=== PATIENT | male | born 1945 | race Caucasian/White ===

== ENCOUNTER 2017-07-04 11:13 | Inpatient (IN) | payer MEDICARE, BC ==
[~2017-07-04] VITALS: Ht 162.6 cm; Wt 81.6 kg
[2017-07-04 13:23] VITALS: BP 135/86
[2017-07-04] MEDS ORDERED: acetaminophen 325mg tablet PO PRN ×2 (14:40)
[2017-07-04] MEDS ORDERED: mag hydrox/Alum hydrox/simeth 30ml oral suspension PO PRN (14:40)
[2017-07-04] MEDS ORDERED: magnesium hydroxide 30ml (MOM) UD suspension PO PRN (14:40)
[2017-07-04] MEDS ORDERED: RISP1TAB3 PO (15:11)
[2017-07-04] MEDS ORDERED: DIVA-81 PO (15:11)
[2017-07-04] MEDS ORDERED: DICL-194 PO (15:11)
[2017-07-04] MEDS ORDERED: LISI-600 PO (15:11)
[2017-07-04 19:00] VITALS: BP 131/83
[2017-07-04] MEDS: divalproex sod 250mg ER (24-hour) tablet PO SCH (20:28)
[2017-07-04] MEDS: risperiDONE 0.5mg tablet PO SCH (20:28)
[2017-07-05 07:29] VITALS: BP 128/79
[2017-07-05 07:33] LABS: BASOPHILS % (AUTO) 0.6 % (0-1); EOSINOPHILS # (AUTO) 0.1 X10'3 (0-0.9); EOSINOPHILS % (AUTO) 1.7 % (0-6); HEMATOCRIT 44.3 % (42.0-52.0); LYMPHOCYTES # (AUTO) 1.5 X10'3 (1.1-4.8); MEAN CORPUSCULAR HEMOGLOBIN 31.6 PG (27.0-31.0); MEAN CORPUSCULAR HGB CONC 33.9 % (33.0-36.5); MEAN CORPUSCULAR VOLUME 93.3 FL (78-98); MEAN PLATELET VOLUME 8.1 FL (7.4-10.4); MONOCYTES # (AUTO) 0.5 X10'3 (0-0.9); MONOCYTES % (AUTO) 10.2 % (2-12); NEUTROPHILS # (AUTO) 3.2 X10'3 (1.8-7.7); NEUTROPHILS % (AUTO) 59.5 % (42-75); PLATELET COUNT 186 X10'3 (140-440); RED BLOOD COUNT 4.75 X10'6 (4.70-6.10); RED CELL DISTRIBUTION WIDTH 12.8 % (11.5-14.5); WHITE BLOOD COUNT 5.4 X10'3 (4.5-11.0)
[2017-07-05 07:48] LABS: ALANINE AMINOTRANSFERASE 25 U/L (12-78); ALBUMIN 3.6 G/DL (3.4-5.0); ALBUMIN/GLOBULIN RATIO 1.1 (1.1-1.5); ALKALINE PHOSPHATASE 62 IU/L (46-116); ANION GAP 7 (8-16); ASPARTATE AMINO TRANSFERASE 10 U/L (10-37); BILIRUBIN,TOTAL 0.8 MG/DL (0.1-1.0); BLOOD UREA NITROGEN 20 MG/DL (7-18); BUN/CREATININE RATIO 18.3 (5.4-32.0); CALCIUM 8.9 MG/DL (8.5-10.1); CHLORIDE 104 MMOL/L (99-107); CREATININE 1.09 MG/DL (0.60-1.10); GLUCOSE 96 MG/DL (70-104); POTASSIUM 4.3 MMOL/L (3.5-5.1); SODIUM 141 MMOL/L (135-145); TOTAL CARBON DIOXIDE 30.4 MMOL/L (24-32); TOTAL PROTEIN 6.8 G/DL (6.4-8.2); eGFR 67 ML/MIN
[2017-07-05] MEDS: risperiDONE 0.5mg tablet PO SCH ×2 (08:12→20:54)
[2017-07-05] MEDS: divalproex sod 250mg ER (24-hour) tablet PO SCH ×2 (08:12→20:54)
[2017-07-05] MEDS: lisinopril 20mg tablet PO SCH (08:12)
[2017-07-05 19:00] VITALS: BP 136/79
[2017-07-06 08:00] VITALS: BP 120/80
[2017-07-06] MEDS: risperiDONE 0.5mg tablet PO SCH ×2 (08:50→20:13)
[2017-07-06] MEDS: lisinopril 20mg tablet PO SCH (08:50)
[2017-07-06] MEDS: divalproex sod 250mg ER (24-hour) tablet PO SCH ×2 (08:50→20:13)
[2017-07-06 19:58] VITALS: BP 125/54
[2017-07-07 08:00] VITALS: BP 116/75
[2017-07-07] MEDS: lisinopril 20mg tablet PO SCH (08:18)
[2017-07-07] MEDS: divalproex sod 250mg ER (24-hour) tablet PO SCH ×2 (08:18→21:03)
[2017-07-07 19:12] VITALS: BP 133/74
[2017-07-07] MEDS: risperiDONE 0.5mg tablet PO SCH (21:03)
[2017-07-08 07:28] VITALS: BP 142/94
[2017-07-08] MEDS: divalproex sod 250mg ER (24-hour) tablet PO SCH ×2 (07:51→20:19)
[2017-07-08] MEDS: risperiDONE 0.5mg tablet PO SCH ×2 (07:51→20:20)
[2017-07-08] MEDS: lisinopril 20mg tablet PO SCH (07:51)
[2017-07-08 08:46] LABS: HEMOGLOBIN A1C 5.6 % (4.5-6.2)
[2017-07-08 08:50] LABS: CHOL/HDL RATIO 2.8 (0.00-4.99); CHOLESTEROL 135 MG/DL (0-200); HDL CHOLESTEROL 48 MG/DL (35-60); LDL CHOLESTEROL 85 MG/DL (50-100); TRIGLYCERIDES 60 MG/DL (20-135)
[2017-07-08 19:29] VITALS: BP 129/80
[2017-07-09] MEDS ORDERED: pantoprazole 40 MG vial IV ONE (00:30)
[2017-07-09] MEDS ORDERED: pantoprazole 40mg Tablet.DR PO ONE (00:45)
[2017-07-09 07:26] VITALS: BP 126/77
[2017-07-09] MEDS: lisinopril 20mg tablet PO SCH (07:47)
[2017-07-09] MEDS: divalproex sod 250mg ER (24-hour) tablet PO SCH (07:47)
[2017-07-09] MEDS: risperiDONE 0.5mg tablet PO SCH (07:47)
[2017-07-09] MEDS ORDERED: RISP0.5T3 PO ×2 (14:45)
[2017-07-09] MEDS ORDERED: DIVA250T8 PO ×2 (14:45)
== END 2017-07-09 16:20 | disposition home or self-care (01) | DRG 885 ==
LOC: ADULT MH 12:37 → UNDOADMIN 12:37
PROVIDERS: ADMIT Psychiatry & Neurology Psychiatry; ATTEND Psychiatry & Neurology Psychiatry
DX: F31.64 Bipolar disorder, current episode mixed, severe, with psychotic features (principal); F10.11 Alcohol abuse, in remission; F41.9 Anxiety disorder, unspecified; I10 Essential (primary) hypertension; K21.9 Gastro-esophageal reflux disease without esophagitis; Z79.899 Other long term (current) drug therapy
CPT/HCPCS: 36415; 80053; 80061; 80164; 83036; 85025; 87070; C9113

== ENCOUNTER 2022-04-09 14:47 | Emergency (ER) | payer BC, MEDICARE ==
[~2022-04-09] VITALS: Ht 167.6 cm; Wt 84.5 kg
[~2022-04-09 14:47] MED LIST: DICL-194 PO; DIVA250T8 PO; LISI20TA28 PO; RISP0.5T65 PO
[2022-04-09] MEDS ORDERED: metoprolol tartrate 50mg tablet PO ONE (20:10)
[2022-04-09 20:19] LABS: BASOPHILS # (AUTO) 0.1 X10'3 (0-0.2); BASOPHILS % (AUTO) 0.8 % (0-1); EOSINOPHILS % (AUTO) 0.7 % (0-6); HEMATOCRIT 42.2 % (42.0-52.0); HEMOGLOBIN 14.7 g/dl (14.0-17.9); LYMPHOCYTES # (AUTO) 1.8 X10'3 (1.1-4.8); LYMPHOCYTES % (AUTO) 26.9 % (21-51); MEAN CORPUSCULAR HEMOGLOBIN 32.8 PG (27.0-31.0); MEAN CORPUSCULAR HGB CONC 34.7 g/dL (33.0-36.5); MEAN CORPUSCULAR VOLUME 94.5 FL (78-98); MEAN PLATELET VOLUME 8.1 FL (7.4-10.4); MONOCYTES # (AUTO) 0.6 X10'3 (0-0.9); MONOCYTES % (AUTO) 8.4 % (2-12); NEUTROPHILS # (AUTO) 4.2 X10'3 (1.8-7.7); NEUTROPHILS % (AUTO) 63.2 % (42-75); PLATELET COUNT 199 X10'3 (140-440); RED BLOOD COUNT 4.47 X10'6 (4.70-6.10); RED CELL DISTRIBUTION WIDTH 13.2 % (11.5-14.5); WHITE BLOOD COUNT 6.6 X10'3 (4.5-11.0)
[2022-04-09 20:24] LABS: ALANINE AMINOTRANSFERASE 29 U/L (12-78); ALBUMIN 3.9 G/DL (3.4-5.0); ALBUMIN/GLOBULIN RATIO 1.3 (1.1-1.5); ALKALINE PHOSPHATASE 60 IU/L (46-116); ANION GAP 7 (8-16); ASPARTATE AMINO TRANSFERASE 19 U/L (10-37); BILIRUBIN,TOTAL 1.2 MG/DL (0.1-1.0); BLOOD UREA NITROGEN 23 MG/DL (7-18); BUN/CREATININE RATIO 22.8 (5.4-32.0); CALCIUM 9.2 MG/DL (8.5-10.1); CHLORIDE 105 MMOL/L (99-107); CREATININE 1.01 MG/DL (0.60-1.10); GLUCOSE 120 MG/DL (70-104); POTASSIUM 3.8 MMOL/L (3.5-5.1); SODIUM 139 MMOL/L (135-145); TOTAL CARBON DIOXIDE 26.6 MMOL/L (24-32); TOTAL PROTEIN 6.9 G/DL (6.4-8.2); eGFR 72 ML/MIN
[2022-04-09 20:40] LABS: CLARITY,URINE CLEAR (Clear); COLOR,URINE YELLOW (Yellow); GLUCOSE, URINE NEGATIVE (Neg); KETONES,URINE NEGATIVE (Neg); LEUKOCYTE ESTERASE ,URINE NEGATIVE (Neg); NITRITES, URINE NEGATIVE (Neg); OCCULT BLOOD,URINE NEGATIVE (Neg); PH,URINE 5.5 (4.8-8.0); PROTEIN,URINE NEGATIVE (Neg); UROBILINOGEN,URINE 0.2 E.U/dL (0.2-1.0)
[2022-04-09 20:41] LABS: UA COLLECTION TYPE URINAL
[2022-04-09 20:54] LABS: URINE AMPHETAMINE SCREEN NEGATIVE (Neg); URINE BARBITUATE SCREEN NEGATIVE (Neg); URINE BENZODIAZEPINES SCREEN NEGATIVE (Neg); URINE CANNABINOID SCREEN NEGATIVE (Neg); URINE COCAINE SCREEN NEGATIVE (Neg); URINE METHADONE SCREEN NEGATIVE (Neg); URINE OPIATE SCREEN NEGATIVE (Neg); URINE PHENCYCLIDINE SCREEN NEGATIVE (Neg)
[2022-04-09 21:06] LABS: ETHANOL < 0.010 GM/DL (0.0-0.010)
[2022-04-09 21:31] VITALS: BP 152/92
== END 2022-04-09 21:36 | disposition home or self-care (01) ==
LOC: ER 14:48
DX: F31.60 Bipolar disorder, current episode mixed, unspecified (principal); I10 Essential (primary) hypertension; K21.9 Gastro-esophageal reflux disease without esophagitis; F31.9 Bipolar disorder, unspecified; F12.10 Cannabis abuse, uncomplicated; Z79.899 Other long term (current) drug therapy
CPT/HCPCS: 36415; 70450; 80053; 80305; 80320; 81003; 84443; 85025; 99284; J7030